=== PATIENT | female | born 1960 | race Caucasian/White ===

== ENCOUNTER 2021-02-08 10:58 | Emergency (ER) | payer OTHER ==
[2021-02-08 11:36] VITALS: BP 201/94; PULSE 88; RESP 18; TEMP 98.8
[2021-02-08] MEDS ORDERED: ACET/COD 300 MG/30 MG STARTER PACK 6 TAB BTL PO STA (11:58)
--- NOTE | 2021-02-08 12:12 | XR ---
EXAMINATION TYPE: XR forearm 2 views LT, XR wrist complete 4 views LT, XR hand complete 3 views LT DATE OF EXAM: 02/08/2021 COMPARISON: NONE HISTORY: 60-year-old female fall and pain FINDINGS: Left forearm: Osteopenia. No elbow joint effusion. No acute fracture more proximal to mid radius or ulna identified . Wrist: There is a minimally impacted, comminuted fracture of the distal radial metaphysis and epiphysis with fracture extension into the radiocarpal and distal radioulnar joints. Slight dorsal angulation is de monstrated. Additional minimally distracted fracture of the ulnar styloid process. Associated soft ti ssue swelling and wrist deformity. Hand: A ring is present on the fourth digit. Severe degenerative change first CMC joint and mild at the tri scaphe joint. Some degenerative spurring at the second DIP joint. Osteopenia. No acute fracture, subl uxation, or dislocation. IMPRESSION: 1. Left forearm: No acute fracture of the more proximal or mid radius or ulna. 2. Wrist: Comminuted, minimally impacted fracture distal radial metaphysis and epiphysis with intra-a rticular extension into the radiocarpal and distal radioulnar joints. Mild dorsal angulation. Additio nal minimally offset fracture ulnar styloid process. 3. Hand: Severe OA at the base of the thumb. No additional acute osseous abnormality seen.
--- NOTE | 2021-02-08 12:27 | ED ---
Upper Extremity HPI - General Chief Complaint: Extremity Injury, Upper Stated Complaint: lt wrist injury Time Seen by Provider: 02/08/21 11:58 Source: patient, RN notes reviewed Mode of arrival: ambulatory Limitations: no limitations - History of Present Illness Initial Comments: Patient is a 60-year-old female that presents to emergency from a complaining of left wrist pain after falling off a stepladder while trying to fix something in her garage. She notes this happened yesterday she tried icing it and taking Motrin at home. She notes that today it was still painful swelling had increased so she came into the emergency room for evaluation. She notes that movement and palpation make the pain worse. She notes that at rest it is moderate pain. She denied any chest pain shortness breath headache nausea vomiting diarrhea constipation fever fatigue chills. - Related Data Allergies Allergy/AdvReac Type Severity Reaction Status Date / Time No Known Allergies Allergy Verified 02/08/21 11:36 Review of Systems ROS Statement: Those systems with pertinent positive or pertinent negative responses have been documented in the HPI. ROS Other: All systems not noted in ROS Statement are negative. Past Medical History Past Medical History: No Reported History History of Any Multi-Drug Resistant Organisms: None Reported Past Surgical History: No Surgical Hx Reported Past Psychological History: No Psychological Hx Reported Smoking Status: Current every day smoker Past Alcohol Use History: Occasional Past Drug Use History: None Reported General Exam Limitations: no limitations General appearance: alert, in no apparent distress Head exam: Present: atraumatic, normocephalic, normal inspection Eye exam: Present: normal appearance, PERRL, EOMI. Absent: scleral icterus, conjunctival injection, periorbital swelling ENT exam: Present: normal exam, mucous membranes moist Neck exam: Present: normal inspection Respiratory exam: Present: normal lung sounds bilaterally. Absent: respiratory distress, wheezes, rales, rhonchi, stridor Cardiovascular Exam: Present: regular rate, normal rhythm, normal heart sounds. Absent: systolic murmur, diastolic murmur, rubs, gallop, clicks Extremities exam: Present: normal inspection, full ROM, normal capillary refill. Absent: tenderness, pedal edema, joint swelling, calf tenderness Left Hand Wrist exam: Present: tenderness (The radial aspect.), swelling. Absent: normal inspection, full ROM (Secondary to pain.) Neurological exam: Present: alert, oriented X3 Psychiatric exam: Present: normal affect, normal mood Skin exam: Present: warm, dry, intact, normal color. Absent: rash Course Vital Signs 02/08/21 11:33 Temperature 98.8 F Pulse Rate 88 Respiratory 18 Rate Blood Pressure 201/94 O2 Sat by Pulse 97 Oximetry Procedures - Orthopedic Splinting/Casting Injury #1 Side: left Upper Extremity Injury Location: wrist Upper Extremity Immobilizer: wrist splint, Gato wrap, synthetic pre-padded splint Medical Decision Making - Medical Decision Making 60-year-old female complains of left wrist pain after falling off a stepladder last night. Tylenol 3, x-ray of the left forearm left wrist and left hand ordered. X-ray shows a comminuted minimally impacted fracture of the distal radius and a ulnar styloid fracture. Patient was splinted will be given orthopedic referral. Case discussed with Dr. Bobby, patient can discharge home. Tylenol 3 starter pack given. - Radiology Data Radiology results: report reviewed, image reviewed X-ray left wrist forearm and hand: Left forearm: No acute fracture of the more proximal or mid radius or ulna. Wrist: Comminuted minimally impacted fracture distal radial metaphysis and if the cyst with intra-articular extension into the radiocarpal and distal ulnar joints. Mild dorsal angulation additional minimally offset fracture or styloid. Hand severe OA at the base of the thumb. No additional acute osseous abdomen seen. Disposition Clinical Impression: Distal radius fracture, left, Fracture of ulnar styloid Disposition: HOME SELF-CARE Condition: Stable Instructions (If sedation given, give patient instructions): Wrist Injury (ED) Additional Instructions: Please return to the Emergency Department if symptoms worsen or any other concerns. Follow-up with primary care 1-2 days. Follow-up with orthopedics as soon as possible. Take Tylenol Motrin as day for pain. Is patient prescribed a controlled substance at d/c from ED?: No Referrals: None,Stated [Primary Care Provider] - 1-2 days Vinnie Stockton MD [STAFF PHYSICIAN] - 1-2 days Time of Disposition: 12:26
== END 2021-02-08 12:32 | disposition home or self-care (01) ==
LOC: EC 10:58
DX: S52.592A Other fractures of lower end of left radius, initial encounter for closed fracture (principal); S52.612A Displaced fracture of left ulna styloid process, initial encounter for closed fracture; F17.200 Nicotine dependence, unspecified, uncomplicated; W11.XXXA Fall on and from ladder, initial encounter
CPT/HCPCS: 99283

== ENCOUNTER 2021-02-13 12:25 | Day surgery (SDC) | payer SELFPAY ==
[~2021-02-13 12:25] MED LIST: DEXAMETHASONE SOD PHOSPHATE 4 MG/ML 1 ML VIAL IV ONE; HYDROmorphone 0.5 MG/0.5 ML SYRINGE IVP PRN; LACTATED RINGERS 1,000 ML IV SCH; MIDAZOLAM 2 MG/2 ML VIAL IV PRN; ONDANSETRON 4 MG/2 ML VIAL IVP ONE; SCOPOLAMINE 1.5MG/72HR PATCH TRANSDERM ONE
[2021-02-13 13:37] LABS: Basophils # (A) 0.1 k/uL (0-0.2); Basophils % (A) 1 %; Eosinophils # (A) 0.2 k/uL (0-0.7); Eosinophils % (A) 2 %; HCT 49.5 % (34.0-46.0); HGB 16.6 gm/dL (11.4-16.0); Lymphocytes # (A) 2.1 k/uL (1.0-4.8); Lymphocytes % (A) 33 %; MCH 33.8 pg (25.0-35.0); MCHC 33.6 g/dL (31.0-37.0); MCV 100.7 fL (80.0-100.0); Mean Platelet Volume 7.2; Monocytes # (A) 0.4 k/uL (0-1.0); Monocytes % (A) 6 %; Neutrophils # (A) 3.5 k/uL (1.3-7.7); Neutrophils % (A) 55 %; Platelet Count 373 k/uL (150-450); RBC 4.92 m/uL (3.80-5.40); RDW 13.1 % (11.5-15.5); WBC 6.3 k/uL (3.8-10.6)
[2021-02-13] MEDS ORDERED: LABETALOL 5 MG/ML VIAL MDV IV ONE (15:00)
[2021-02-13] MEDS ORDERED: HYDROmorphone (PF) 1 MG/ML ONE (16:32)
[2021-02-13] MEDS ORDERED: hydrALAZINE HCL 20 MG/ML 1 ML VIAL ONE (16:32)
[2021-02-13] MEDS ORDERED: LIDOCAINE 1% INJ 10MG/ML (20 ML MDV) ONE (16:32)
[2021-02-13] MEDS ORDERED: PROPOFOL 10 MG/ML 20 ML VIAL IV ONE (16:32)
[2021-02-13] MEDS ORDERED: fentaNYL (PF) 50 MCG/ML 2 ML AMP ONE (16:32)
[2021-02-13] MEDS ORDERED: MIDAZOLAM 2 MG/2 ML VIAL ONE (16:32)
[2021-02-13] MEDS ORDERED: LACTATED RINGERS 1,000 ML IV ONE (16:45)
[2021-02-13] MEDS ORDERED: BUPIVACAINE (PF) 0.5% 30 ML VIAL MISCELLANE ONE (17:46)
[2021-02-13] MEDS ORDERED: LIDOCAINE 1%-EPI 1:100,000 20 ML VIAL INTRAARTIC ONE (17:47)
[2021-02-13 18:38] VITALS: TEMP 99
--- NOTE | 2021-02-13 18:52 | P.OP ---
Date of Procedure: 02/13/21 Preoperative Diagnosis: Left distal radius fracture Postoperative Diagnosis: Same Procedure(s) Performed: Left distal radius open reduction internal fixation with acute radialis tendon lengthening Implants: Tri-med volar locking plate, narrow 3 hole Anesthesia: DESMOND Surgeon: Alissa Otto Insulation Blanket Maker #1: Chantel Wilson Estimated Blood Loss (ml): 5 Condition: stable Disposition: PACU Indications for Procedure: Patient is a 60-year-old female who fell off of a stepladder sustaining a unstable distal radius fracture. Operative Findings: Patient, operative extremity, and procedure were identified in the preoperative holding area. After informed consent was obtained the patient was brought back to the operating room. Left upper extremity was prepped and draped in normal sterile fashion with a tourniquet on the patient's brachium. Formal timeout was performed. Longitudinal incision was made along the volar wrist over the FCR tendon. Sheath was opened and the FPL was swept aside to visualize the pronator quadratus. This was elevated off of the distal radius revealing the fracture. Fracture was three-part intra-articular. Reduction was performed with the help of a [place] elevator and a brachial radialis release. The release was done in a step cut fashion for later repair. Once the reduction was deemed adequate a 3 hole narrow plate was placed provisionally with K wires. Proximal screw was then inserted into the oblong hole and the plate was shifted a couple millimeters distal into the appropriate position. Distal screws were then inserted. Initially the radial styloid screws were displacing the radial styloid fragment. A radial styloid K wire was then used to hold the fracture fragment while the screws were placed. The second distal row screw seemed to further displace the fragment and the decision was made to leave it out because there were 2 other screws already fixating this fragment. Reduction and hardware placement were confirmed on fluoroscopy and the remaining shaft screws were placed. All guide pins were removed. Final x-rays were taken. The brachial radialis was then repaired with 3-0 Vicryl in a lengthened fashion. Tourniquet was let down, hemostasis was achieved and the wound was closed in a layered fashion with 4-0 Monocryl and skin glue. Wound was dressed with Adaptic 4 x 4 and a volar wrist splint. She was brought back to PACU in stable condition and she'll come see us in 2 weeks.
[2021-02-13 19:12] VITALS: RESP 16
[2021-02-13 19:25] VITALS: BP 143/83; PULSE 91
== END 2021-02-13 19:37 | disposition home or self-care (01) ==
LOC: OR 12:25
PROVIDERS: ATTEND Orthopaedic Surgery Hand Surgery
DX: S52.502A Unspecified fracture of the lower end of left radius, initial encounter for closed fracture (principal)
CPT/HCPCS: 25609; 85025; C1713; J2250; J0360; J1100; J0690; J2405; J2001; J3010; J1170; J2704

== ENCOUNTER → 2021-10-26 | Outpatient (CLI) | payer OTHER ==
--- NOTE | 2021-10-26 16:50 | BD ---
EXAMINATION TYPE: Axial Bone Density DATE OF EXAM: 10/26/2021 COMPARISON: NONE CLINICAL HISTORY: 61 years year old Female. ICD-10 CODE: Z780 ASYMPTOMATIC MENOPAUSAL STATUS Height: 66 Weight: 140.5 FRAX RISK QUESTIONS: Alcohol (3 or more units per day): no Family History (Parent hip fracture): no Glucocorticoids (More than 3mos): no (Ex: prednisone, prednisolone, methylprednisolone, dexamethasone, and hydrocortisone). History of Fracture in Adulthood: yes Secondary Osteoporosis: 1. Type 1 Diabetes: no 2. Hyperthyroidism: no 3. Menopause before 45: no 4. Malnutrition: no 5. Chronic liver disease: no Rheumatoid Arthritis: no Current Tobacco Use: yes RISK FACTORS HISTORY OF: History of Wrist Fracture: left When: 2020 Surgery to Spine/Hip(right/left)/Wrist (right/left): no Family History of Osteoporosis: no Active: yes Diet low in dairy products/other sources of calcium: no Postmenopausal woman: yes Lost more than 2 inches in height since high school: no MEDICATIONS: Additional History: EXAM MEASUREMENTS: Bone mineral densitometry was performed using the [employer] System. Bone mineral density as measured about the Lumbar spine is: ----- L1-L4(G/cm2): 1.206 T Score Values are as follows: ----- L1: 2.6 ----- L2: 0.0 ----- L3: -1.0 ----- L4: -0.5 ----- L1-L4: 0.2 Bone mineral density : baseline Bone mineral density about the R hip (g/cm2): 0.866 Bone mineral density about the L hip (g/cm2): 0.847 T Score values are as follows: -----R Neck: -1.2 -----L Neck: -1.4 -----R Total: -1.3 -----L Total: -1.2 Bone mineral density : baseline FRAX%s: The graph provided illustrates a 13.0% chance for a major osteoporotic fx and a 2.0% chance f or the hips probability for fx in 10 years time. IMPRESSION: Osteopenia (T Score between -2.5 and -1). There is slightly increased risk of fracture and the patient may be considered for treatment. Re-Screen 2-5 years. NOTE: T-SCORE=SD OF THE YOUNG ADULT MEAN.
--- NOTE | 2021-10-27 10:30 | MM ---
Reason for Exam: Screening (asymptomatic). Baseline mammogram. Patient History: Menarche at age 14. First Full-Term at age 24. Postmenopausal. Patient has history of breast feeding. Sister had breast cancer, age 54. Risk Values: Lashell 5 year model risk: 2.6%. NCI Lifetime model risk: 12.1%. Prior Study Comparison: Patient's first Mammogram. Tissue Density: The breast tissue is heterogeneously dense. This may lower the sensitivity of mammography. Findings: Analyzed By CAD. There is a benign-appearing round calcification within the right breast. Smaller rounded calcifications are within the left breast. Small nodule anterior left breast. This is likely benign but a short-term follow-up is recommended in 6 months to confirm stability. No suspicious groups of microcalcifications, spiculated or lobular masses, architectural distortion or other secondary signs of malignancy are mammographically apparent. Overall Assessment: Probably benign, BI-RAD 3 Management: Diagnostic Mammogram of the left breast in 6 months. A negative mammogram report should not preclude additional follow up of suspicious palpable abnormalities. Patient should continue monthly self breast exam. A clinical breast exam by your physician is recommended on an annual basis and results should be correlated with mammographic findings. Electronically signed and approved by: Dallin Carbajal D.O. Radiologis
== END | disposition home or self-care (01) ==
LOC: RADMAMWWP 10:06
PROVIDERS: ATTEND Family Medicine
DX: Z12.31 Encounter for screening mammogram for malignant neoplasm of breast (principal); Z78.0 Asymptomatic menopausal state; Z80.3 Family history of malignant neoplasm of breast
CPT/HCPCS: 77067; 77080

== ENCOUNTER → 2022-04-30 | Outpatient (CLI) | payer OTHER ==
--- NOTE | 2022-04-30 11:36 | MM ---
Reason for Exam: Follow-up at short interval from prior study. Last screening mammogram was performed 6 month(s) ago. Patient History: Menarche at age 14. First Full-Term at age 24. Postmenopausal. Patient has history of breast feeding. Sister had breast cancer, age 54. Risk Values: Lashell 5 year model risk: 2.6%. NCI Lifetime model risk: 12.1%. Prior Study Comparison: 10/26/2021 Bilateral MG screening mammo w CAD, PH. Tissue Density: Left: The breast tissue is heterogeneously dense. This may lower the sensitivity of mammography. Findings: Analyzed By CAD. No new suspicious masses or calcifications within the stable round benign-appearing calcifications within the left breast. Stable 4 mm benign appearing nodule within the central left breast on the CC view posteriorly. Overall Assessment: Benign, BI-RAD 2 Management: Screening Mammogram of both breasts in 6 months. A clinical breast exam by your physician is recommended on an annual basis and results should be correlated with mammographic findings. This exam should not preclude additional follow-up of suspicious palpable abnormalities. Results were given to the patient verbally at the time of exam. Electronically signed and approved by: Anant Machuca D.O.
== END | disposition home or self-care (01) ==
LOC: RADMAMWWP 11:14
PROVIDERS: ATTEND Family Medicine
DX: R92.8 Other abnormal and inconclusive findings on diagnostic imaging of breast (principal); Z78.0 Asymptomatic menopausal state; Z80.3 Family history of malignant neoplasm of breast
CPT/HCPCS: 77065

== ENCOUNTER → 2023-01-02 | Outpatient (CLI) | payer OTHER ==
--- NOTE | 2023-01-02 12:57 | CTL ---
EXAMINATION TYPE: CT Low Dose Lung DATE OF EXAM: 01/02/2023 12:40 PM CLINICAL INDICATION:Female, 62 years old with history of Z12.2 SCREENING FOR NEOPLASM OF RESPIRATORY ORGANS; SCREENING FOR NEOPLASM OF RESPIRATORY ORGANS. hx of tobacco use. 1 pack/ day x 40 years, curr ent smoker. , history of tobacco use. COMPARISON: None. TECHNIQUE: Multiple axial non-contrast scans were obtained from approximately the lung apices through the upper abdomen. Coronal and sagittal reformatted images were obtained. Low dose technique was uti lized. CT DLP: 71.3 mGycm, Automated exposure control for dose reduction was used. CT Contrast: Contrast used: None Oral contrast used: None FINDINGS: ======== Lack of intravenous contrast and low dose technique limits the evaluation of the vascular and soft ti ssue structures. LUNGS: No evidence of pulmonary fibrosis. No evidence of focal consolidation, pneumothorax or pleural effusion. Mild centrilobular emphysema changes. Nodules: RUL: Linear atelectasis/scarring. May be an adjacent small nodule measuring 3 mm. Series 6 image 15 posteriorly. RML: None. RLL: None. MARGAUX: None. LLL: None. AIRWAY: Patent and unremarkable. HEART: Size within normal limits. MEDIASTINUM: No gross evidence of adenopathy. VASCULATURE: Atherosclerotic calcifications are present throughout the aorta and its branches. MUSCULOSKELETAL: Moderate disc degeneration changes are present throughout the thoracolumbar spine. R emote appearing left rib fracture with callus formation. SOFT TISSUES/LYMPH NODES: Unremarkable. LOWER NECK: No significant findings. UPPER ABDOMEN: Diffuse low-attenuation to the liver parenchyma. IMPRESSION: No clinically significant pulmonary nodules. Mild centrilobular emphysema. CT LUNG RAD AND CT CHEST RECOMMENDATION: Lung-Rad 2 Benign Appearance or Behavior: Continue annual sc reening with LDCT in 12 months. S Modifier (other clinically significant findings): None Recommend smoking cessation (if current smoker), or continuation of smoking cessation (if prior smoke r). Annual screening for lung cancer with low-dose computed tomography is recommended in adults ages 55 to 77 years who have a 30 pack-year smoking history and currently smoke or have quit within the pa st 15 years. Screening should be discontinued once a person has not smoked for 15 years or develops a health problem that substantially limits life expectancy or the ability or willingness to have curat maeve lung surgery. Lung rads 2021 [email or web address]
== END | disposition home or self-care (01) ==
LOC: RADCTMAIN 12:19
PROVIDERS: ATTEND Family Medicine
DX: Z12.2 Encounter for screening for malignant neoplasm of respiratory organs (principal); J43.2 Centrilobular emphysema; F17.210 Nicotine dependence, cigarettes, uncomplicated
CPT/HCPCS: 71271